=== PATIENT | female | born 1985 | race African-American/Black ===

== ENCOUNTER 2018-01-11 00:51 | Emergency (ER) | payer MEDICAID ==
[~2018-01-11] VITALS: Ht 172.7 cm; Wt 63.5 kg
[2018-01-11] MEDS ORDERED: LORazepam Inj 2mg/ml 1ml IV ONE (01:15)
[2018-01-11 01:36] LABS: HEMATOCRIT 40.3 % (37.0-47.0); HEMOGLOBIN 13.2 G/DL (12.0-16.0); MEAN CORPUSCULAR VOLUME 83 FL (80-99); PLATELET COUNT 227 K/UL (150-450); RED BLOOD COUNT 4.86 M/UL (4.20-5.40); RED CELL DISTRIBUTION WIDTH 15.2 % (11.6-14.8); WHITE BLOOD COUNT 11.2 K/UL (4.8-10.8)
[2018-01-11 01:43] LABS: ANION GAP 23 mmol/L (5-15); BLOOD UREA NITROGEN 12 mg/dL (7-18); CALCIUM 10.7 MG/DL (8.5-10.1); CARBON DIOXIDE 15 MMOL/L (21-32); CHLORIDE 103 MMOL/L (98-107); CREATININE 2.4 MG/DL (0.55-1.30); POTASSIUM 2.9 MMOL/L (3.5-5.1); SODIUM 141 MMOL/L (136-145)
[2018-01-11 01:54] LABS: ALANINE AMINOTRANSFERASE 28 U/L (12-78); ALBUMIN 4.1 G/DL (3.4-5.0); ALBUMIN/GLOBULIN RATIO 0.8 (1.0-2.7); ALKALINE PHOSPHATASE 83 U/L (46-116); ASPARTATE AMINO TRANSFERASE 21 U/L (15-37); BILIRUBIN,TOTAL 1.1 MG/DL (0.2-1.0)
[2018-01-11 02:17] LABS: BILIRUBIN,DIRECT 0.3 MG/DL (0.0-0.3)
[2018-01-11 02:48] LABS: APPEARANCE,URINE SLIGHTLY CLOUDY; BILIRUBIN, URINE 2+ (NEGATIVE); COLOR,URINE BROWN; GLUCOSE, URINE (UA) NEGATIVE (NEGATIVE); KETONES,URINE 2+ (NEGATIVE); LEUKOCYTE ESTERASE ,URINE 2+ (NEGATIVE); NITRITE,URINE POSITIVE (NEGATIVE); PH,URINE 5 (4.5-8.0); PROTEIN,URINE 3+ (NEGATIVE); UROBILINOGEN,URINE 8 MG/DL (0.0-1.0)
[2018-01-11 03:00] VITALS: BP 104/72
[2018-01-11] MEDS ORDERED: cefTRIAXone 1 GM in NS 55 ML IVPB ONE (03:30)
--- NOTE | 2018-01-11 03:42 | Emergency Room Report ---
History of Present Illness General Chief Complaint: Overdose Source: Patient, Family Member, EMS Present Illness HPI Is a 32-year-old female brought in by EMS for altered mental status. She denies any drug abuse. Per EMS who spoke with her sister, unable to see for 2 days. She's been pacing agitated. Her sister gave her some over-the- counter sleeping medication. Did did not help at all. And she became more agitated so they called 911. EMS said that she overdosed on the sleeping medication. Patient denies that. History is otherwise limited because of patient condition. She does not have any psychiatric issue never been admitted before per patient. Allergies: Coded Allergies: No Known Allergies (Unverified , 01/11/18) Patient History Past Medical History: see triage record, old chart reviewed Past Surgical History: other Pertinent Family History: none Social History: Denies: smoking Last Menstrual Period: unknown Now: No Immunizations: other Reviewed Nursing Documentation: PMH: Agreed; PSxH: Agreed Nursing Documentation-PMH Past Medical History: No Stated History Review of Systems Eye: Denies: eye pain, blurred vision ENT: Denies: ear pain, nose congestion, throat swelling Respiratory: Denies: cough, shortness of breath Cardiovascular: Denies: chest pain, palpitations Gastrointestinal: Denies: abdominal pain, diarrhea, nausea, vomiting Musculoskeletal: Denies: back pain, joint pain Skin: Denies: rash Neurological: Denies: headache, numbness Endocrine: Denies: increased thirst, increased urine Hematologic/Lymphatic: Denies: easy bruising All Other Systems: negative except mentioned in HPI Physical Exam Vital Signs Date Time Temp Pulse Resp B/P (MAP) Pulse Ox O2 Delivery O2 Flow Rate FiO2 01/11/18 00:52 98.0 143 20 136/83 100 Room Air 98.1 vitals with tachycardia Sp02 EP Interpretation: reviewed, normal General Appearance: well appearing, no apparent distress, alert Head: normocephalic, atraumatic Eyes: bilateral eye PERRL, bilateral eye EOMI ENT: hearing grossly normal, normal pharynx Neck: full range of motion, supple, no meningismus Respiratory: chest non-tender, lungs clear, normal breath sounds Cardiovascular #1: regular rate, rhythm, no murmur, tachycardia Gastrointestinal: normal bowel sounds, non tender, no mass, no organomegaly, no bruit, non-distended Musculoskeletal: back normal, gait/station normal, normal range of motion Neurologic: alert Psychiatric: other - agitated Skin: diaphoresis Medical Decision Making Diagnostic Impression: Primary Impression: Psychosis Qualified Codes: F23 - Brief psychotic disorder Additional Impressions: Amphetamine abuse ABI (acute kidney injury) UTI (urinary tract infection) Qualified Codes: N30.00 - Acute cystitis without hematuria Proteinuria Qualified Codes: R80.9 - Proteinuria, unspecified ER Course Patient presents with acute psychosis probably secondary to drug abuse. Symptom improved greatly after Ativan. Heart rate is now normal. Blood pressure normal. We'll repeat labs to see if kidney function improved. Her hypokalemia is probably secondary to hyperventilating and agitation. Will reassess in the morning. Pt is calm now. no si/hi. will dc home. Lab Results Impression labs with hypokalemia and elevated kidney function EKG Diagnostic Results Rate: tachycardiac Rhythm: NSR ST Segments: no acute changes Rhythm Strip Diag. Results Rhythm Strip Time: 03:41 EP Interpretation: yes Rate: 84 Rhythm: NSR, no PVC's, no ectopy Last Vital Signs Date Time Temp Pulse Resp B/P (MAP) Pulse Ox O2 Delivery O2 Flow Rate FiO2 01/11/18 00:52 98.0 143 20 136/83 100 Room Air 98.1 Status: improved Disposition: HOME, SELF-CARE Condition: Stable Referrals: [facility],REFERRING (PCP) Additional Instructions: Follow up with your doctor in 7 days. Return if symptoms worsen. EVE CHRITSY M.D. Jan 11, 2018 03:42
[2018-01-11 04:44] LABS: ANION GAP 11 mmol/L (5-15); BLOOD UREA NITROGEN 10 mg/dL (7-18); CALCIUM 8.9 MG/DL (8.5-10.1); CARBON DIOXIDE 22 MMOL/L (21-32); CHLORIDE 111 MMOL/L (98-107); CREATININE 1.2 MG/DL (0.55-1.30); POTASSIUM 3.4 MMOL/L (3.5-5.1); SODIUM 144 MMOL/L (136-145)
[2018-01-11 05:47] VITALS: BP 109/63
[2018-01-11 07:23] VITALS: BP 99/65
[2018-01-11 11:13] VITALS: BP 103/63
[2018-01-11 11:26] VITALS: BP 103/63
--- NOTE | 2018-01-12 18:39 | Cardiology Report ---
APPROVED REPORT EKG Measurement Heart [id number] Sinus tachycardia T wave abnormality, consider inferolateral ischemia Abnormal ECG
== END 2018-01-11 11:29 | disposition home or self-care (01) ==
LOC: EDBD 00:51 → EMR 01:09
DX: F29 Unspecified psychosis not due to a substance or known physiological condition (principal); F15.10 Other stimulant abuse, uncomplicated; N39.0 Urinary tract infection, site not specified; N17.9 Acute kidney failure, unspecified
CPT/HCPCS: 36415; 80048; 80053; 80307; 80329; 81003; 81025; 82248; 82962; 85007; 85025; 87086; 93005; 96361; 96365; 96375; 99284; J0696; 96360; 96374

== ENCOUNTER 2018-01-21 04:57 | Emergency (ER) | payer MEDICAID ==
[~2018-01-21] VITALS: Ht 172.7 cm; Wt 68.0 kg
[2018-01-21 05:00] VITALS: BP 138/89
--- NOTE | 2018-01-21 05:09 | Emergency Room Report ---
History of Present Illness General Chief Complaint: Substance Abuse Source: Patient (Joselito Manzanares M.D.) Present Illness HPI Patient presents via EMS after allegedly doing methamphetamine. She denies suicidal ideation at the moment. She feels palpitations and is thirsty. No pain reported. No rashes. Will not state when last period was to me. She was treated here for similar complaints recently (01/11) had UTI, low potassium and ABI. (Joselito Manzanares M.D.) Allergies: Coded Allergies: No Known Allergies (Unverified , 01/11/18) Patient History Past Medical History: see triage record Social History: Reports: smoking, drug use Social History Narrative from home Last Menstrual Period: unk Reviewed Nursing Documentation: PMH: Agreed; PSxH: Agreed (Joselito Manzanares M.D.) Nursing Documentation-PMH Past Medical History: No Stated History (Joselito Manzanares M.D.) Review of Systems All Other Systems: negative except mentioned in HPI (Joselito Manzanares M.D.) Physical Exam Vital Signs Date Time Temp Pulse Resp B/P (MAP) Pulse Ox O2 Delivery O2 Flow Rate FiO2 01/21/18 04:55 97.5 140 16 140/90 99 Room Air 97.5 Sp02 EP Interpretation: reviewed, normal General Appearance: well appearing, GCS 15, mild distress Head: normocephalic Eyes: bilateral eye PERRL, bilateral eye Scleral Injection ENT: dry mucus membranes Neck: supple Respiratory: lungs clear, normal breath sounds Cardiovascular #1: tachycardia Cardiovascular #2: 2+ radial (R) Gastrointestinal: normal inspection, non tender, no mass, non-distended, decreased bowel sounds Genitourinary: no CVA tenderness Musculoskeletal: back normal, gait/station normal, normal range of motion Neurologic: alert, oriented - X2 Psychiatric: no suicidal/homicidal ideation, anxious - and with flight of ideas Skin: normal inspection, warm/dry (Joselito Manzanares M.D.) Medical Decision Making Diagnostic Impression: Primary Impression: Amphetamine abuse Additional Impression: Hypokalemia ER Course Patient presents with a history of methamphetamine abuse and altered mentation. She is tachycardic at this time. Differential includes dehydration, renal failure, rhabdomyolysis, methamphetamine abuse and other toxic substances. Patient will be evaluated with EKG, labs. The patient will be hydrated and Ativan 1 mg will be given. Potassium low. Oral and IV ordered. Tox + for amphetamines. Resting. Signed out to Dr. Wright. Laboratory Tests Test 01/21/18 05:15 White Blood Count 7.8 K/UL (4.8-10.8) Red Blood Count 4.55 M/UL (4.20-5.40) Hemoglobin 12.2 G/DL (12.0-16.0) Hematocrit 38.1 % (37.0-47.0) Mean Corpuscular Volume 84 FL (80-99) Mean Corpuscular Hemoglobin 26.9 PG (27.0-31.0) L Mean Corpuscular Hemoglobin Concent 32.1 G/DL (32.0-36.0) Red Cell Distribution Width 15.7 % (11.6-14.8) H Platelet Count 245 K/UL (150-450) Mean Platelet Volume 7.5 FL (6.5-10.1) Neutrophils (%) (Auto) 81.7 % (45.0-75.0) H Lymphocytes (%) (Auto) 15.7 % (20.0-45.0) L Monocytes (%) (Auto) 2.0 % (1.0-10.0) Eosinophils (%) (Auto) 0.1 % (0.0-3.0) Basophils (%) (Auto) 0.4 % (0.0-2.0) Sodium Level 139 MMOL/L (136-145) Potassium Level 2.4 MMOL/L (3.5-5.1) *L Chloride Level 102 MMOL/L (98-107) Carbon Dioxide Level 18 MMOL/L (21-32) L Anion Gap 18 mmol/L (5-15) H Blood Urea Nitrogen 6 mg/dL (7-18) L Creatinine 1.5 MG/DL (0.55-1.30) H Estimate Glomerular Filtration Rate 49.4 mL/min (>60) Glucose Level 245 MG/DL (74-106) H Calcium Level 9.1 MG/DL (8.5-10.1) Total Bilirubin 0.7 MG/DL (0.2-1.0) Aspartate Amino Transferase (AST) 17 U/L (15-37) Alanine Aminotransferase (ALT) 20 U/L (12-78) Alkaline Phosphatase 94 U/L (46-116) Total Creatine Kinase 63 U/L (26-308) Total Protein 7.9 G/DL (6.4-8.2) Albumin 3.5 G/DL (3.4-5.0) Globulin 4.4 g/dL Albumin/Globulin Ratio 0.8 (1.0-2.7) L Salicylates Level 3.4 ug/mL (2.8-20) Acetaminophen Level < 2 MCG/ML (10-30) L Serum Alcohol < 3 mg/dL (Joselito Manzanares M.D.) ER Course 13:15 This is an addendum added at the time of dictation Patient had initially become more awake and alert initially had requested to go home However after continued replacement of potassium patient has now again fell back asleep Given the initial presentation and the patient's general evaluation Social work was requested for further evaluation and intervention as needed Patient however remains nonsuicidal appears to have had acute drug psychosis. 13:50 at theTime indicated now patient was seen by social work, patient is cleared for discharge she also feels significantly improved and will have close outpatient follow-up Labs Test 01/21/18 05:15 White Blood Count 7.8 K/UL (4.8-10.8) Red Blood Count 4.55 M/UL (4.20-5.40) Hemoglobin 12.2 G/DL (12.0-16.0) Hematocrit 38.1 % (37.0-47.0) Mean Corpuscular Volume 84 FL (80-99) Mean Corpuscular Hemoglobin 26.9 PG (27.0-31.0) Mean Corpuscular Hemoglobin Concent 32.1 G/DL (32.0-36.0) Red Cell Distribution Width 15.7 % (11.6-14.8) Platelet Count 245 K/UL (150-450) Mean Platelet Volume 7.5 FL (6.5-10.1) Neutrophils (%) (Auto) 81.7 % (45.0-75.0) Lymphocytes (%) (Auto) 15.7 % (20.0-45.0) Monocytes (%) (Auto) 2.0 % (1.0-10.0) Eosinophils (%) (Auto) 0.1 % (0.0-3.0) Basophils (%) (Auto) 0.4 % (0.0-2.0) Sodium Level 139 MMOL/L (136-145) Potassium Level 2.4 MMOL/L (3.5-5.1) Chloride Level 102 MMOL/L (98-107) Carbon Dioxide Level 18 MMOL/L (21-32) Anion Gap 18 mmol/L (5-15) Blood Urea Nitrogen 6 mg/dL (7-18) Creatinine 1.5 MG/DL (0.55-1.30) Estimat Glomerular Filtration Rate 49.4 mL/min (>60) Glucose Level 245 MG/DL (74-106) Calcium Level 9.1 MG/DL (8.5-10.1) Total Bilirubin 0.7 MG/DL (0.2-1.0) Aspartate Amino Transf (AST/SGOT) 17 U/L (15-37) Alanine Aminotransferase (ALT/SGPT) 20 U/L (12-78) Alkaline Phosphatase 94 U/L (46-116) Total Creatine Kinase 63 U/L (26-308) Total Protein 7.9 G/DL (6.4-8.2) Albumin 3.5 G/DL (3.4-5.0) Globulin 4.4 g/dL Albumin/Globulin Ratio 0.8 (1.0-2.7) Salicylates Level 3.4 ug/mL (2.8-20) Acetaminophen Level < 2 MCG/ML (10-30) Serum Alcohol < 3 mg/dL (Gunnar Wright DO) EKG Diagnostic Results Rate: tachycardiac ST Segments: no acute changes (Joselito Manzanares M.D.) Rhythm Strip Diag. Results EP Interpretation: yes Rhythm: no PVC's, no ectopy, other - ST (Joselito Manzanares M.D.) Status: improved (Joselito Manzanares M.D.) Status: improved (Gunnar Wright DO) Disposition: HOME, SELF-CARE Condition: Improved Additional Instructions: Patient is provided with the discharge instructions notified to follow up with primary doctor in the next 2-3 days otherwise return to the er with any worsening symptoms. Please note that this report is being documented using DRAGON technology. This can lead to erroneous entry secondary to incorrect interpretation by the dictating instrument. Joselito Manzanares M.D. Jan 21, 2018 05:09 Gunnar Wright DO Jan 21, 2018 13:30
[2018-01-21] MEDS ORDERED: LORazepam Inj 2mg/ml 1ml IV ONE (05:15)
[2018-01-21 05:32] LABS: BASOPHILS % (AUTO) 0.4 % (0.0-2.0); EOSINOPHILS % (AUTO) 0.1 % (0.0-3.0); HEMATOCRIT 38.1 % (37.0-47.0); HEMOGLOBIN 12.2 G/DL (12.0-16.0); LYMPHOCYTES % (AUTO) 15.7 % (20.0-45.0); MEAN CORPUSCULAR VOLUME 84 FL (80-99); NEUTROPHILS % (AUTO) 81.7 % (45.0-75.0); PLATELET COUNT 245 K/UL (150-450); RED BLOOD COUNT 4.55 M/UL (4.20-5.40); RED CELL DISTRIBUTION WIDTH 15.7 % (11.6-14.8); WHITE BLOOD COUNT 7.8 K/UL (4.8-10.8)
[2018-01-21 05:49] LABS: ALANINE AMINOTRANSFERASE 20 U/L (12-78); ALBUMIN 3.5 G/DL (3.4-5.0); ALBUMIN/GLOBULIN RATIO 0.8 (1.0-2.7); ALKALINE PHOSPHATASE 94 U/L (46-116); ANION GAP 18 mmol/L (5-15); ASPARTATE AMINO TRANSFERASE 17 U/L (15-37); BILIRUBIN,TOTAL 0.7 MG/DL (0.2-1.0); BLOOD UREA NITROGEN 6 mg/dL (7-18); CALCIUM 9.1 MG/DL (8.5-10.1); CARBON DIOXIDE 18 MMOL/L (21-32); CHLORIDE 102 MMOL/L (98-107); CREATINE KINASE 63 U/L (26-308); CREATININE 1.5 MG/DL (0.55-1.30); SODIUM 139 MMOL/L (136-145)
[2018-01-21 05:50] LABS: POTASSIUM 2.4 MMOL/L (3.5-5.1)
[2018-01-21 06:15] VITALS: BP 142/93
[2018-01-21 06:58] VITALS: BP 135/86
[2018-01-21 07:41] VITALS: BP 106/77
[2018-01-21 14:25] VITALS: BP 106/77
--- NOTE | 2018-01-21 16:30 | Cardiology Report ---
APPROVED REPORT EKG Measurement Heart [id number] MI 112P [id number] Sinus tachycardia Nonspecific T wave abnormality Prolonged QT Abnormal ECG
== END 2018-01-21 14:28 | disposition home or self-care (01) ==
LOC: EDBD 04:57 → EMR 05:13
DX: F15.10 Other stimulant abuse, uncomplicated (principal); E87.6 Hypokalemia
CPT/HCPCS: 36415; 80053; 80329; 82550; 85025; 93005; 96361; 96365; 96375; 99283; J3480; J8499